=== PATIENT | female | born 1970 | race Caucasian/White ===

== ENCOUNTER 2022-05-18 09:40 | Emergency (ER) | payer OTHER, SELFPAY ==
[2022-05-18 09:41] VITALS: BP 174/97; PULSE 87; RESP 18; TEMP 36.6; O2SAT 99; BMI 34.7
--- NOTE | 2022-05-18 09:57 | CT_ITS ---
STUDY: CT ABDOMEN AND PELVIS WITHOUT CONTRAST REASON FOR EXAM: Female, 51 years old. Kidney Stone -- Left flank pain status post hysterectomy RADIATION DOSAGE (If Supplied By Facility): CTDIvol = ( 22.20 ) mGy, DLP = ( 1192.68 ) mGycm TECHNIQUE: Transaxial images were obtained from the dome of the diaphragm to the symphysis pubis without oral contrast, and without intravenous contrast. Sagittal and coronal images were reconstructed. Individualized dose optimization techniques were used for this CT. COMPARISON: None. FINDINGS: 1.7 cm x 0.7 cm partially calcified nodule in the posterior aspect of the right upper lobe. The visualized portions of the heart are within normal limits. Normal liver. Normal gallbladder and extrahepatic biliary system. Normal spleen. Normal pancreas. Normal bilateral adrenal glands. Normal right kidney. Normal left kidney. Normal visualized stomach. Normal small intestine. There are scattered colonic diverticula consistent with diverticulosis. The appendix is visualized and appears normal. There is scattered atherosclerotic calcification of the abdominal aorta, without a demonstrated aneurysm. Normal inferior vena cava. Normal retroperitoneum. Normal urinary bladder. There is absence of the uterus consistent with a prior hysterectomy. Normal abdominal wall. There are mild degenerative changes of the visualized lumbar spine. Loss of the normal lumbar lordosis. CT/Abdomen/Pelvis without Cont IMPRESSION: 1.7 cm x 0.7 cm partially calcified nodule in the posterior aspect of the right upper lobe. Scattered sigmoid diverticula. Electronically Signed: Chetan Arango MD at 10:41 EST ,
[2022-05-18] MEDS: Ondansetron 4 MG/2 ML Vial IV (10:10)
[2022-05-18] MEDS: morphine 8 MG/ML Syringe IV (10:10)
[2022-05-18 10:17] LABS: Absolute Lymphocyte Count 2.16 X10^3/uL (0.83-4.51); Absolute Neutrophil Count 7.3 X10^3/uL (2.0-7.7); Basophil# 0.02 X10^3/uL; Basophil% 0.2 % (0-1); Eosinophil# 0.15 X10^3/uL; Eosinophils% 1.4 % (0-5); Hemoglobin 14.8 g/dL (12.0-15.0); Lymphocyte # 2.16 X10^3/ul (0.83-4.51); Lymphocyte % 20.8 % (19-41); Mean Corp Hgb Conc 32.9 g/dL (32-36); Mean Corpuscular Hgb 28.9 pg (27.0-32.0); Mean Corpuscular Volume 87.9 fL (81-99); Mean Platelet Vol. 9.8 fl (6.2-12.0); Monocyte# 0.68 X10^3/uL; Monocyte% 6.6 % (0-10); NRBC Flagged by Analyzer 0 % (0-5); Neutrophil # 7.31 X10^3/uL (2.7-7.7); Neutrophil % 70.6 % (47-70); Platelet Count 381 K/mm3 (150-450); RBC Distribution Width CV 11.9 % (11.6-14.6); RBC Distribution Width SD 38.1 fl (35.1-43.9); Red Blood Count 5.12 M/mm3 (4.2-5.4); White Blood Count 10.4 K/mm3 (4.4-11.0)
[2022-05-18] MEDS: 0.9% Normal Saline 1,000 ML 250 ML IV (10:17)
--- NOTE | 2022-05-18 10:28 | EX.ED.DYSGE1 ---
HPI History of Present Illness Chief Complaint: Abd Pain Detail of Chief Complaint: Abrupt onset left lower quadrant and flank pain Informant: patient and spouse/S.O. Onset/Context/Timing Onset: Hours Context: Sudden Onset Timing: Continuous and Waxes and wanes Quality: Severe pain Location: Left flank and left lower quadrant Current Severity: Severe Maximum Severity: Severe Worsened by: Nothing Relieved by: Nothing Associated Symptoms Associated Symptoms: Nausea and urgency Narrative Narrative: Patient is a 51-year-old woman who is visiting from [place]. She has history of type 2 diabetes x10 years, hypertension, and hypercholesterolemia. She does not not believe she has kidney dysfunction. She does report chills without fever. She denies headache, visual, ocular auditory symptoms. She denies upper respiratory infectious symptoms. She denies vomiting diarrhea. She denies blood in her urine. She denies history of renal or ureterolithiasis. She denies history of diverticulosis diverticulitis. She states she is never had a colonoscopy. She endorses that she cannot find a position of comfort. There is no history of trauma. She is status post hysterectomy. Prior similar symptoms: No Recent Illness/Hospitalization: No PFSH PFS Medical History (Updated 05/18/22 @ 11:[address] Dylan Stanley MD) Afib Diabetes Migraine Post hysterectomy menopause Stroke Uterine adenomyoma Home Medications acarbose 50 mg tablet 50 mg PO DAILY 05/18/22 [History Last Taken Unknown] aspirin 81 mg chewable tablet 81 mg PO DAILY 05/18/22 [History Last Taken Unknown] lisinopril 10 mg tablet 10 mg PO DAILY #30 tabs 05/18/22 [Rx Last Taken Unknown] metformin 1,000 mg tablet 1,000 mg PO BID 05/18/22 [History Last Taken Unknown] simvastatin 40 mg tablet 40 mg PO DAILY 05/18/22 [History Last Taken Unknown] topiramate 100 mg tablet 100 mg PO BID 05/18/22 [History Last Taken Unknown] verapamil 120 mg tablet 120 mg PO BID 05/18/22 [History Last Taken Unknown] Allergy/AdvReac Type Severity Reaction Status Date / Time bee venom protein (honey bee) Allergy Mild Swelling Verified 05/18/22 09:58 [bee sting] Social History (Updated 05/18/22 @ 10:[address] Dylan Stanley MD) household members: spouse Smoking Status: Never smoker substance use type: does not use ROS ROS ED Constitutional Constitutional ED: Reports chills; Denies fever(s), subjective or sweats Eyes Eyes: Denies blurry vision, change in vision or diplopia ENT ENT ED: Denies ear pain, rhinorrhea or sore throat Cardiovascular Cardiovascular: Denies chest pain or palpitations Respiratory/Chest Respiratory/Chest: Denies cough, dyspnea or dyspnea on exertion Gastrointestinal Gastrointestinal: Reports abdominal pain and nausea; Denies constipation, diarrhea, melena or vomiting Genitourinary Genitourinary ED: Reports urinary frequency; Denies dysuria or hematuria Musculoskeletal Musculoskeletal: Reports other Details: Left flank pain ; Denies arthralgias, back pain, myalgias or neck pain Integumentary Denies Abrasions or rash Neurologic Neurologic: Denies paresthesias or weakness Endocrine Endocrinology: Denies polydipsia or polyuria Hematologic/Lymphatic Hematologic/Lymphatic: Reports none EXAM Physical Exam Const Vital Signs: 05/18/22 09:41 Temperature 97.8 F Temperature Source Temporal Pulse Rate 87 Respiratory Rate 18 Blood Pressure 174/97 H Blood Pressure Mean 122 Pulse Ox 99 Oxygen Delivery Method Room Air Positive well nourished, well developed and obese Constitutional Narrative: Patient appears in obvious discomfort. She is grimacing. General Appearance ED: well developed; Negative for pallor Nutritional Appearance: obese HEENT Reports moist mucous membranes HEENT Narrative: Head is atraumatic normocephalic. Ears normal. Nares patent. Uvula midline. No deviation with protrusion. Eyes PERRL General Eye ED: Negative for pale conjunctiva or scleral icterus Neck no lymphadenopathy, supple and no JVD Chest Wall inspection of chest normal and palpation of chest normal Resp normal respiratory effort and clear to auscultation bilaterally Cardio regular rate, regular rhythm, S1 normal heart sound, S2 normal heart sound and no murmurs GI normal to inspection, nondistended, normoactive bowel sounds, non-tender, non-distended and no masses; Negative for hepatosplenomegaly GI Narrative: There is no palpable pulsatile mass. There is no bruit. Back/Spine no CVA tenderness Thoracic Spine / Upper Back: Negative for thoracic spinal tenderness Lumbar Spine / Lower Back: Negative for lumbar spinal tenderness Neuro oriented x3, CN's II-XII intact bilaterally and no sensory deficits noted Sensorium / Orientation: alert Motor Exam: strength 5/5 throughout Psych mental status grossly normal Skin no rashes or lesions noted, no wounds and skin turgor normal General Skin Exam: elasticity normal; Negative for jaundice or pallor MDM MDM MDM Narrative Medical decision making narrative: Patient with abrupt onset of flank/abdominal pain. With history of unable to find position of comfort urgency suspect patient has obstructing ureteral stone. Will obtain urine to assess for infection. Basic metabolic panel was obtained since patient is diabetic assess glucose and CO2 anion gap as well as electrolytes. Also to determine patient has renal dysfunction in the event the morphine that was ordered does not alleviate her pain and will treat with Toradol. CBC was obtained to assess white count and rule out anemia. There are no records available for review. Did review patient's records on my chart. Patient was assessed at 1035. She states her pain is improved markedly. She still is having pain. Informed her that the basic metabolic panel had not returned and reluctant to treat with Toradol prior to reviewing her BUN and creatinine since she has had diabetes and hypertension for 10 years. Patient was made aware of CAT scan results and need for follow-up regarding the calcified nodule right upper lung field. Since she has a significant first-degree heart block and on verapamil will have patient discontinue verapamil and placed on lisinopril especially since she has an elevated creatinine with a GFR of 48. We will also discharge with pain medicine and antiemetic. Patient was not treated with antibiotics since there is no evidence of any inflammatory changes with regards to the colonic diverticular disease. Lab Data Attestation: I reviewed the patient's lab results. Lab results narrative: CBC is unremarkable. Patient metabolic panel reveals elevated creatinine of 1.25 with a GFR of 48. Glucose is elevated 244. CO2 and anion gap are normal. Labs: Laboratory Results - last 24 hr 05/18/22 05/18/22 09:50 09:50 WBC 10.4 RBC 5.12 Hgb 14.8 Hct 45.0 MCV 87.9 MCH 28.9 MCHC 32.9 RDW Std Deviation 38.1 RDW Coeff of Adelfo 11.9 Plt Count 381 MPV 9.8 Immature Gran % (Auto) 0.400 Neut % (Auto) 70.6 H Lymph % (Auto) 20.8 Woodward % (Auto) 6.6 Eos % (Auto) 1.4 Baso % (Auto) 0.2 Absolute Neuts (auto) 7.3 Absolute Lymphs (auto) 2.16 Nucleated RBC % 0 Sodium 137 Potassium 3.7 Chloride 105 Carbon Dioxide 25.0 Anion Gap 7 BUN 20 H Creatinine 1.25 H Estim Creat Clear Calc 50.97 Est GFR (MDRD) Af Amer 58 L Est GFR (MDRD) Non-Af 48 L BUN/Creatinine Ratio 16.0 Glucose 244 H Calcium 9.4 Radiography Diagnostic Testing: Clinical Impression(s) from Imaging Studies Abdomen/Pelvis CT 05/18/22 09:57 IMPRESSION: 1.7 cm x 0.7 cm partially calcified nodule in the posterior aspect of the right upper lobe. Scattered sigmoid diverticula. Electronically Signed: Chetan Arango MD at 10:41 EST , Patient has a nodule which will need further investigation. We will have disc made since patient is visiting from [place]. Rhythm Strip Rhythm Strip: Sinus Rhythm (There is a first-degree heart block The monitor. We will obtain twelve-lead EKG determine there is any other abnormalities.) Rate: 77 EKG Initial EKG: Attestation: I personally reviewed and interpreted this EKG as follows: Interpretation: Sinus Rhythm (Sinus rhythm with a first-degree heart block. Ventricular rate 79. MN interval 328 ms. QS duration 70 ms. QT duration 398 ms. Harriman is normal. There is decreased anterior force. There is no acute ischemic changes noted.) Prior: No Prior Treatment and Re-Evaluation Narrative: Patient was reassessed. Patient was informed per my interpretation of the CAT scan there is no evidence of renal ureterolithiasis. There is no evidence of cholelithiasis or thickening the gallbladder wall. The liver and spleen appear normal. Awaiting formal read by radiologist. There is no acute inflammatory changes noted either. Discharge Plan Triage Chief Complaint: Abd Pain ED Provider: JadenDylan Dx/Rx/DC Orders Clinical Impression: Left lower quadrant abdominal pain, Acute abdominal pain in left flank, Acute renal insufficiency, Hyperglycemia due to type 2 diabetes mellitus, Incidental pulmonary nodule, greater than or equal to 8mm, Colonic diverticular disease, Heart block AV first degree, Hypertension Instructions: ED Abdominal Pain Unkn Cause Fem, ED Pulmonary Nodule, Solitary, ED Renal Insufficiency Prescriptions: New lisinopril 10 mg tablet 10 mg PO DAILY Qty: 30 0RF No Action acarbose 50 mg Tablet 50 mg PO DAILY simvastatin 40 mg Tablet 40 mg PO DAILY verapamil 120 mg Tablet 120 mg PO BID metformin 1,000 mg Tablet 1,000 mg PO BID aspirin 81 mg Tablet,Chewable 81 mg PO DAILY topiramate 100 mg Tablet 100 mg PO BID Primary Care Provider: Care Physician,No Primary Referrals: Care Physician,No Primary [Primary Care Provider] - Doctor,Your [Non-Staff] - 1 Week Activity Restrictions/Additional Instructions: Discontinue verapamil. Disposition Disposition: Home, Self Care
[2022-05-18 10:30] LABS: Anion Gap 7 (5-15); BUN 20 mg/dL (7-18); Calcium,Total 9.4 mg/dL (8.5-10.1); Chloride 105 mmol/L (98-107); Creatinine, Serum 1.25 mg/dL (0.55-1.02); EST Glomerular Filtration Rate 48 mL/min (>60); Est Glom Filt Rate - Afr Amer 58 mL/min (>60); Estimated Creatinine Clearance 50.97 ml/min; Glucose 244 mg/dL (74-106); Potassium 3.7 mmol/L (3.5-5.1); Sodium Level 137 mmol/L (136-145)
--- NOTE | 2022-05-18 10:56 | EKG12_ITS ---
Test Reason : HEART BLOCK Blood Pressure : / mmHG Vent. Rate : 079 BPM Atrial Rate : 079 BPM P-R Int : 328 ms QRS Dur : 070 ms QT Int : 398 ms P-R-T Axes : 075 012 054 degrees QTc Int : 456 ms Sinus rhythm with 1st degree A-V block Septal infarct , age undetermined Abnormal ECG Confirmed by RIDGE COHN, СЕРГЕЙ ([id number]), online editor TINA COBB ([id number]) on 05/22/2022 12:25:09 PM Referred By: MARILUZ Confirmed By:СЕРГЕЙ SABILLON MD
[2022-05-18 11:15] LABS: Bacteria 0 SEEN /hpf (None Seen); Mucous, Urine 0 SEEN /hpf (<or=2+); Red Blood Cells-Urine 0 SEEN /hpf (0-5)
[2022-05-18 11:19] LABS: Color, Urine Yellow (Yellow); Glucose, Dipstick 50 mg/dl (Normal); Ketone-Dipstick Negative (Negative); Leukocyte Esterase-Dipstick 25 /ul (Negative); Nitrite-Dipstick Negative (Negative); Occult Blood-Urine Negative /ul (Negative); Protein-Dipstick Negative (Negative); Specific Gravity, Urine 1.005 (1.002-1.030); Urine Bilirubin Dipstick Negative (Negative); Urine Clarity Clear (Clear); Urine Urobilinogen Normal (Normal)
[2022-05-18 11:28] VITALS: BP 138/66; PULSE 59; RESP 16; O2SAT 98
[2022-05-18 11:28] LABS: Squamous Epithelial Cells - UA 0-5 SEEN /hpf (5-10); White Blood Cells 0-5 SEEN /hpf (0-5)
== END 2022-05-18 11:30 | disposition home or self-care (01) ==
PROVIDERS: Emergency Provider Emergency Medicine; Visit Provider Emergency Medicine
DX: R10.32 Left lower quadrant pain (principal); E11.65 Type 2 diabetes mellitus with hyperglycemia; R11.0 Nausea; K57.30 Diverticulosis of large intestine without perforation or abscess without bleeding; I44.0 Atrioventricular block, first degree; I10 Essential (primary) hypertension; E78.00 Pure hypercholesterolemia, unspecified; N28.9 Disorder of kidney and ureter, unspecified; R35.0 Frequency of micturition; E66.9 Obesity, unspecified; Z79.82 Long term (current) use of aspirin; Z79.84 Long term (current) use of oral hypoglycemic drugs; Z79.899 Other long term (current) drug therapy; R91.1 Solitary pulmonary nodule
CPT/HCPCS: 74176; 80048; 81001; 85025; 93005; 96374; 96375; 99283; J7030; A4216; J2405

== ENCOUNTER 2022-11-16 22:10 | Observation (INO) | payer OTHER, SELFPAY ==
[2022-11-16 22:10] VITALS: BP 163/75; PULSE 77; RESP 21; TEMP 36.8; O2SAT 99
[2022-11-16 22:13] VITALS: BP 163/75; PULSE 77; RESP 16; O2SAT 99
--- NOTE | 2022-11-16 22:13 | CT_ITS ---
We are attempting to reach an attending provider to discuss findings. An addendum with communication details will be sent when the communication is complete. EXAM: CT HEAD WITHOUT INTRAVENOUS CONTRAST CLINICAL INDICATION: Neuro deficit, acute, stroke suspected TECHNIQUE: Multiple axial images were obtained of the head without intravenous contrast. CTDIvol = ( 45 ) mGy, DLP = ( 846 ) mGycm This CT exam was performed using one or more of the following dose reduction techniques: automated exposure control, adjustment of the mA and/or kV according to patient size, and/or use of iterative reconstruction technique. COMPARISON: No relevant prior studies available. 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 Old infarct involving the left cerebellum. No intra- or extra-axial hemorrhage. No intracranial mass or mass effect. Posterior fossa structures are unremarkable. Ventricles are appropriate for age. No hydrocephalus. Basal cisterns are patent. BONES/JOINTS: Unremarkable. No discrete lytic or blastic abnormalities. SINUSES: Unremarkable as visualized. Clear. MASTOID AIR CELLS: Unremarkable. Clear. ORBITS: Visualized globes, extraocular muscles, optic nerves and retrobulbar fat appear unremarkable. CT/STROKE Brain/Head without Cont IMPRESSION: No acute findings in the head/brain. 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 Stroke ASPECTS score 10. AIDOC program was used to assist in the detection of abnormal findings. Electronically Signed: Malik Rosen MD at 22:32 EDT ,
--- NOTE | 2022-11-16 22:13 | EKG12_ITS ---
Test Reason : STROKE Blood Pressure : / mmHG Vent. Rate : 077 BPM Atrial Rate : 077 BPM P-R Int : 370 ms QRS Dur : 072 ms QT Int : 392 ms P-R-T Axes : 052 000 027 degrees QTc Int : 443 ms Sinus rhythm with 1st degree A-V block Possible Inferior infarct , age undetermined Anteroseptal infarct , age undetermined Abnormal ECG Confirmed by RIDGE COHN, СЕРГЕЙ ([id number]), assistant film editor TINA COBB ([id number]) on 11/17/2022 1:00:41 PM Referred By: Confirmed By:СЕРГЕЙ SABILLON MD
--- NOTE | 2022-11-16 22:14 | CT_ITS ---
We are attempting to reach an attending provider to discuss findings. An addendum with communication details will be sent when the communication is complete. EXAM: CT ANGIOGRAPHY HEAD T NECK WITH INTRAVENOUS CONTRAST CLINICAL INDICATION: Neuro deficit, acute, stroke suspected TECHNIQUE: Routine head and neck carotid CT angiography protocol was performed with intravenous contrast. NASCET criteria using the distal ICAs for comparison were used for evaluation of stenoses. CTDIvol = ( 19.95 ) mGy, DLP = ( 792.46 ) mGycm This CT exam was performed using one or more of the following dose reduction techniques: automated exposure control, adjustment of the mA and/or kV according to patient size, and/or use of iterative reconstruction technique. MIP reconstructed images were created and reviewed. CONTRAST: IV 100mL [id number] COMPARISON: No relevant prior studies available. FINDINGS: Intracranially there is no significant stenosis, thrombosis, aneurysm or dissection. Old infarcts are seen involving the left cerebellar hemisphere and left occipital lobe. VASCULATURE: RIGHT COMMON CAROTID ARTERY: Unremarkable. No occlusion or significant stenosis. No dissection. RIGHT INTERNAL CAROTID ARTERY: Unremarkable. Extracranial segment is patent with no occlusion or significant stenosis. No dissection. RIGHT EXTERNAL CAROTID ARTERY: Unremarkable. No occlusion. RIGHT VERTEBRAL ARTERY: Unremarkable. No occlusion or significant stenosis. No dissection. LEFT COMMON CAROTID ARTERY: Unremarkable. No occlusion or significant stenosis. No dissection. LEFT INTERNAL CAROTID ARTERY: Unremarkable. Extracranial segment is patent with no occlusion or significant stenosis. No dissection. LEFT EXTERNAL CAROTID ARTERY: Unremarkable. No occlusion. LEFT VERTEBRAL ARTERY: Unremarkable. No occlusion or significant stenosis. No dissection. BRACHIOCEPHALIC AND SUBCLAVIAN ARTERIES: Unremarkable as visualized. No occlusion or significant stenosis. NECK: BONES/JOINTS: Unremarkable. SOFT TISSUES: Unremarkable. LUNG APICES: Clear. CAROTID STENOSIS REFERENCE USING NASCET CRITERIA: % ICA stenosis = (1 - narrowest ICA diameter/diameter of distal cervical ICA) x 100. Mild - <50% stenosis. Moderate - 50-69% stenosis. Severe - 70-94% stenosis. Near occlusion - 95-99% stenosis. Occluded - 100% stenosis. CT/STROKE CTA Head AND Neck W/Con IMPRESSION: Negative CTA head and neck. AIDOC program was used to assist in the detection of abnormal findings. Electronically Signed: Malik Rosen MD at 22:47 EDT Reading Location ID and State: [facility] / [place] Tel , Service support ,
--- NOTE | 2022-11-16 22:15 | ED.VIS.STROK ---
HPI History of Present Illness Chief Complaint: Stroke Alert Informant: patient, spouse/S.O. and EMS Onset/Context/Timing Onset: Today Narrative Narrative: Patient presents via EMS as a stroke alert. EMS reports they were called at 9:26 PM just after the patient developed symptoms of right-sided weakness and right facial droop. They report in route to the hospital the facial droop has essentially resolved. She continues to have right-sided weakness. She does have a history of atrial fibrillation, not on anticoagulation. She has had migraines and TIAs as well. With prior TIA she has had right-sided weakness as well as vision loss. [facility] Medical History Afib Diabetes Migraine Post hysterectomy menopause Stroke Uterine adenomyoma Home Medications hydrocodone-acetaminophen 5-325mg 5mg-325mg 1 tab PO Q6H PRN PRN Pain 3 days #10 TABLETS 05/18/22 [Rx Last Taken Unknown] lisinopril 10 mg tablet 10 mg PO DAILY #30 tabs 05/18/22 [Rx Last Taken Unknown] metformin 1,000 mg tablet 500 mg PO BID 05/18/22 [History Last Taken Unknown] ondansetron 4 mg disintegrating tablet 4 mg PO Q8H PRN PRN Nausea #10 tabs 05/18/22 [Rx Last Taken Unknown] simvastatin 40 mg tablet 40 mg PO DAILY 05/18/22 [History Last Taken Unknown] topiramate 100 mg tablet 100 mg PO BID 05/18/22 [History Last Taken Unknown] verapamil 120 mg tablet 120 mg PO BID 05/18/22 [History Last Taken Unknown] aspirin 325 mg tablet,delayed release (Aspir-Oksana) 325 mg PO DAILY 11/16/22 [History Last Taken Unknown] Allergy/AdvReac Type Severity Reaction Status Date / Time bee venom protein (honey bee) Allergy Mild Swelling Verified 11/16/22 23:00 [bee sting] Social History household members: spouse Smoking Status: Never smoker substance use type: does not use ROS ROS ED Constitutional Constitutional ED: Denies chills or fever(s) Eyes Eyes: Denies change in vision ENT ENT ED: Denies rhinorrhea or sore throat Cardiovascular Cardiovascular: Denies chest pain or palpitations Respiratory/Chest Respiratory/Chest: Denies cough or dyspnea Gastrointestinal Gastrointestinal: Denies abdominal pain, nausea or vomiting Genitourinary Genitourinary ED: Denies difficulty urinating or dysuria Musculoskeletal Musculoskeletal: Denies back pain or extremity pain Integumentary Denies Abrasions or rash Neurologic Neurologic: Reports headache(s), paresthesias and weakness Psychiatric Psychiatric: Denies anxiety or depression Allergic/Immunologic Allergic/Immunologic ED: Denies lip swelling or urticaria EXAM Physical Exam Const Vital Signs: 11/16/22 22:24 11/16/22 22:10 11/16/22 22:51 Temperature 98.3 F 98.3 F Temperature Source Temporal Temporal Pulse Rate 76 77 Respiratory Rate 23 H 21 H Blood Pressure 163/75 H 163/75 H Blood Pressure Mean 104 104 Pulse Ox 99 99 Oxygen Delivery Method Room Air Room Air Room Air 11/16/22 22:13 11/16/22 22:43 11/16/22 23:21 Temperature Temperature Source Pulse Rate 77 81 95 Respiratory Rate 16 22 H 18 Blood Pressure 163/75 H 155/75 H 136/79 H Blood Pressure Mean 104 101 98 Pulse Ox 99 97 98 Oxygen Delivery Method Room Air Room Air Room Air Positive well nourished and well developed General Appearance ED: well developed HEENT Reports moist mucous membranes Eyes PERRL and EOMs intact bilaterally Neck no lymphadenopathy Chest Wall inspection of chest normal and palpation of chest normal Resp normal respiratory effort and clear to auscultation bilaterally Cardio Rate: regular rate Rhythm: regular rhythm GI soft to palpation and non-tender Auscultation: hypoactive bowel sounds Neuro oriented x3 NIHSS NIHSS Initial: 1a Level of Consciousness: 0 1b LOC Questions (Score 2 if aphasic/stupor): 0 1c LOC Commands (Only score 1st attempt): 0 2 Best Gaze (If aphasic, use reflexive mvmts.): 0 3 Visual: 1 4 Facial Palsy: 0 5 Motor Arm Right (UN = amputation/fusion): 2 5 Motor Arm Left: 0 6 Motor Leg Right: 3 6 Motor Leg Left: 0 7 Limb ataxia (Only + if out of proportion): 0 8 Sensory (Aphasia/stupor=0 or 1, coma=2): 1 9 Best Language: 0 10 Dysarthria (mute, coma=2, intubated=UN): 0 11 Extinction and Inattention (only scored if +): 0 Total Score: 7 MDM MDM MDM Narrative Medical decision making narrative: Patient was made a stroke alert on arrival. She was met at the ambulance bay and after quick exam was sent immediately to CT. The patient returned to the room I repeated her exam. Her NIH score is 7. Labwork obtained to evaluate for leukocytosis, anemia, and electrolyte derangement. EKG obtained to evaluate for cardiac arrhythmia/ischemia. Chest x-ray obtained to evaluate for acute lung pathology, cardiac size, or mediastinal abnormality. I was in the room when [facility] neurologist evaluated the patient. She requested the patient be treated for migraine and was not sure that this represented a new stroke, but may be an exacerbation of old stroke symptoms. Patient is given Toradol, Compazine, Benadryl, and IV fluids. History & Record Review Discussion w/independent historian: EMS personnel, Patient and Family Additional record(s) reviewed:: Prior labs Lab Data Attestation: I reviewed the patient's lab results. Labs: Laboratory Results - last 24 hr 11/16/22 22:30 WBC 8.9 RBC 4.12 L Hgb 12.1 Hct 37.4 MCV 90.8 MCH 29.4 MCHC 32.4 RDW Std Deviation 43.0 RDW Coeff of Adelfo 13.1 Plt Count 240 MPV 9.8 Immature Gran % (Auto) 0.200 Neut % (Auto) 53.6 Lymph % (Auto) 31.2 [place] % (Auto) 5.8 Eos % (Auto) 9.0 H Baso % (Auto) 0.2 Absolute Neuts (auto) 4.8 Absolute Lymphs (auto) 2.78 Nucleated RBC % 0 PT 13.0 INR 1.0 APTT 27.5 Sodium 140 Potassium 3.7 Chloride 109 H Carbon Dioxide 26.0 Anion Gap 5 BUN 25 H Creatinine 1.43 H Estim Creat Clear Calc 44.06 Est GFR (MDRD) Af Amer 50 L Est GFR (MDRD) Non-Af 41 L BUN/Creatinine Ratio 17.5 Glucose 117 H Calcium 8.4 L Troponin I High Sens 5 Radiography Chest X-Ray - ED: 1 View, Read by ED Physician, Normal, Heart, Lungs and Mediastinum Diagnostic Testing: Clinical Impression(s) from Imaging Studies Brain CT 11/16/22 22:13 IMPRESSION: No acute findings in the head/brain. 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 Stroke ASPECTS score 10. AIDOC program was used to assist in the detection of abnormal findings. Electronically Signed: Malik Rosen MD at 22:32 EDT , ADDENDUM: 11/16/22 2239 IMPRESSION: No acute findings in the head/brain. 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 Stroke ASPECTS score 10. AIDOC program was used to assist in the detection of abnormal findings. N.B. : The above Results were Read Back by Malik Rosen MD to Megan Rogers MD, and understanding confirmed on 11/16/2022 22:33:03 (ET). Electronically Signed: Malik Rosen MD at 22:32 EDT , ADDENDUM: 11/16/22 2241 IMPRESSION: undefined Head/Neck CTA 11/16/22 22:14 IMPRESSION: Negative CTA head and neck. AIDOC program was used to assist in the detection of abnormal findings. Electronically Signed: Malik Rosen MD at 22:47 EDT , ADDENDUM: 11/16/22 2254 IMPRESSION: Negative CTA head and neck. AIDOC program was used to assist in the detection of abnormal findings. N.B. : The above Results were Read Back by Malik Rosen MD to Megan Rogers MD, and understanding confirmed on 11/16/2022 22:47:56 (ET). Electronically Signed: Malik Rosen MD at 22:47 EDT , ADDENDUM: 11/16/22 7757 IMPRESSION: undefined EKG Initial EKG: Attestation: I personally reviewed and interpreted this EKG as follows: Interpretation: Sinus Rhythm (Sinus at 77 with no acute ischemia.) Treatment and Re-Evaluation Narrative: On repeat evaluation patient resting comfortably. She continues to have significant right-sided paresthesias with weakness. CBC is unremarkable. Chemistry studies reveal a BUN of 25 and a creatinine 1.43. Troponin is normal at 5. Glucose is 117. Portable chest x-ray per my interpretation reveals no acute findings. EKG is sinus rhythm with no acute ischemia. I will discuss case with hospitalist for observation and further treatment. Discharge Plan Triage Chief Complaint: Stroke Alert ED Provider: Megan Rogers Dx/Rx/DC Orders Clinical Impression: Paresthesias, Migraine, Acute right-sided muscle weakness Prescriptions: No Action simvastatin 40 mg Tablet 40 mg PO DAILY verapamil 120 mg Tablet 120 mg PO BID metformin 1,000 mg Tablet 500 mg PO BID topiramate 100 mg Tablet 100 mg PO BID lisinopril 10 mg tablet 10 mg PO DAILY Qty: 30 0RF hydrocodone-acetaminophen [hydrocodone-acetaminophen] 5-325 mg tablet 1 tab PO Q6H PRN PRN (Reason: Pain) 3 Days Qty: 10 0RF ondansetron [ondansetron] 4 mg tablet,disintegrating 4 mg PO Q8H PRN PRN (Reason: Nausea) Qty: 10 0RF aspirin [Aspir-Oksana] 325 mg tablet,delayed release (DR/EC) 325 mg PO DAILY Primary Care Provider: Care Physician,No Primary Referrals: Care Physician,No Primary [Primary Care Provider] - Disposition [facility]
[2022-11-16 22:24] VITALS: BP 163/75; PULSE 76; RESP 23; TEMP 36.8; O2SAT 99; BMI 35.2
[2022-11-16 22:34] LABS: Absolute Lymphocyte Count 2.78 X10^3/uL (0.83-4.51); Absolute Neutrophil Count 4.8 X10^3/uL (2.0-7.7); Basophil# 0.02 X10^3/uL; Basophil% 0.2 % (0-1); Hematocrit 37.4 % (37-47); Hemoglobin 12.1 g/dL (12.0-15.0); Lymphocyte # 2.78 X10^3/ul (0.83-4.51); Lymphocyte % 31.2 % (19-41); Mean Corp Hgb Conc 32.4 g/dL (32-36); Mean Corpuscular Hgb 29.4 pg (27.0-32.0); Mean Corpuscular Volume 90.8 fL (81-99); Mean Platelet Vol. 9.8 fl (6.2-12.0); Monocyte# 0.52 X10^3/uL; Monocyte% 5.8 % (0-10); NRBC Flagged by Analyzer 0 % (0-5); Neutrophil # 4.76 X10^3/uL (2.7-7.7); Neutrophil % 53.6 % (47-70); Platelet Count 240 K/mm3 (150-450); RBC Distribution Width CV 13.1 % (11.6-14.6); Red Blood Count 4.12 M/mm3 (4.2-5.4); White Blood Count 8.9 K/mm3 (4.4-11.0)
[2022-11-16 22:43] VITALS: BP 155/75; PULSE 81; RESP 22; O2SAT 97
[2022-11-16 22:48] LABS: Partial Thromboplast Time 27.5 Seconds (24.1-36.2)
[2022-11-16] MEDS: DiphenhydrAMINE 50 MG/ML Syringe 25 MG IV (22:49)
[2022-11-16] MEDS: proCHLORPERazine 10 MG/2 ML Vial IV (22:49)
[2022-11-16] MEDS: 0.9% Normal Saline 1,000 ML 999 ML IV (22:50)
[2022-11-16] MEDS: Ketorolac 30 MG/ML Syringe IV (22:50)
[2022-11-16 22:53] LABS: Anion Gap 5 (5-15); BUN 25 mg/dL (7-18); BUN/Creat Ratio 17.5 RATIO (10-20); Calcium,Total 8.4 mg/dL (8.5-10.1); Chloride 109 mmol/L (98-107); Creatinine, Serum 1.43 mg/dL (0.55-1.02); EST Glomerular Filtration Rate 41 mL/min (>60); Est Glom Filt Rate - Afr Amer 50 mL/min (>60); Estimated Creatinine Clearance 44.06 ml/min; Glucose 117 mg/dL (74-106); Potassium 3.7 mmol/L (3.5-5.1); Sodium Level 140 mmol/L (136-145); Troponin-I HS 5 pg/mL (3.0-54.0)
[2022-11-16 22:58] VITALS: BMI 35.2
[2022-11-16 23:21] VITALS: BP 136/79; PULSE 95; RESP 18; O2SAT 98
--- NOTE | 2022-11-16 23:21 | RAD_ITS ---
EXAM: XR CHEST, 1 VIEW CLINICAL INDICATION: Neuro deficit, acute, stroke suspected TECHNIQUE: Frontal view of the chest. COMPARISON: No relevant prior studies available. FINDINGS: LUNGS AND PLEURAL SPACES: Unremarkable. No consolidation or edema. No pneumothorax. No effusion. HEART: Unremarkable. Cardiac silhouette not enlarged. MEDIASTINUM: Central airways and mediastinal contour are unremarkable. BONES/JOINTS: Degenerative changes of the acromioclavicular joints. SOFT TISSUES: Unremarkable. RAD/Chest 1 View IMPRESSION: No radiographic evidence of acute cardiopulmonary disease. Electronically Signed: Malik Rosen MD at 0:27 EDT ,
[2022-11-16 23:50] VITALS: BP 108/77; PULSE 85; RESP 17; O2SAT 95
[2022-11-17] VITALS (7 sets, daily range): BP systolic 107–137; BP diastolic 58–81; PULSE 65–88; RESP 16–22; TEMP 36.2–36.9; O2SAT 95–100; BMI 34.0
--- NOTE | 2022-11-17 00:22 | ED.RN ---
Addendum entered by Alma Jain 11/17/22 00:42: Dr. Corado aware of pt LOC. Original Note: Pt alertness decreased due to medications. Pt alert and could follow commands before med administration. Unable to remain awake for dysphagia screen.
[2022-11-17 00:27] LABS: Magnesium 1.8 mg/dL (1.6-2.6)
--- NOTE | 2022-11-17 00:42 | HP.PCM.HOS_ITS ---
HPI - General General Date of Admission: 11/17/22 Date of Service: 11/17/22 Chief Complaint: R sided weakness, paresthesias, migraine. 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, PAF not on chronic anticoagulation, Chronic migraines who presents to the [facility] ED on 11/16/22 with history of onset at approximately 9:26 PM right-sided weakness and right facial droop with EMS immediate call requested with stroke alert initiated with on route to hospital resolution of at least the facial droop but continued right-sided weakness with associated significant paresthesias however admitting also to a current migraine at the same time with prior history of having issues with right-sided weakness as well as vision loss transiently with reported per patient acute migraines. In the ED initial NIH stroke scale per ED physician with score of 7 for visual 1, right upper extremity 2, right lower extremity 3, sensory 1. Repeat NIH stroke scale assessment per stroke alert neurology [facility] with score 241 drift and 1 mild to moderate sensory loss only. Work-up in the ED included T98.3, heart 76, BP initially 163/75 with most recent repeat 136/79, respiratory rate 16, 99% on room air, CBC with WC 8.9, human 12.1, platelet 240 without marked shift, unremarkable coags, BMP with chloride 109, BUN/creatinine 25/1.43, glucose 117, troponin 5, CT of the brain with no acute intracranial findings however there is evidence of an old infarct involving the left occipital lobe with encephalomalacia and also the left cerebellum, CTA head and neck with no acute evidence of any stenoses or large vessel occlusions. Per stroke alert [facility] neurology recommendation recommendation for migraine cocktail, continue aspirin, SBP less than 180, obtain MRI head without contrast, continue routine stroke evaluation with therapies and lab evaluations, EKG with SR without acute evidence of ischemia. Following migraine cocktail she did have improvement in her paresthesias and was starting to be able to move her extremities but the cocktail has made her very fatigued and she since has been sleeping soundly. [facility] Medical History (Updated 11/17/22 @ 00:[address] Tammy Corado MD) Chronic migraine with aura Diabetes mellitus, type 2 HLD (hyperlipidemia) Obesity SEAN on CPAP PAF (paroxysmal atrial fibrillation) Post hysterectomy menopause Stroke Uterine adenomyoma Home Medications hydrocodone-acetaminophen 5-325mg 5mg-325mg 1 tab PO Q6H PRN PRN Pain 3 days #10 TABLETS 05/18/22 [Rx Last Taken Unknown] lisinopril 10 mg tablet 10 mg PO DAILY #30 tabs 05/18/22 [Rx Last Taken Unknown] metformin 1,000 mg tablet 500 mg PO BID 05/18/22 [History Last Taken Unknown] ondansetron 4 mg disintegrating tablet 4 mg PO Q8H PRN PRN Nausea #10 tabs 05/18/22 [Rx Last Taken Unknown] simvastatin 40 mg tablet 40 mg PO DAILY 05/18/22 [History Last Taken Unknown] topiramate 100 mg tablet 100 mg PO BID 05/18/22 [History Last Taken Unknown] verapamil 120 mg tablet 120 mg PO BID 05/18/22 [History Last Taken Unknown] aspirin 325 mg tablet,delayed release (Aspir-Oksana) 325 mg PO DAILY 11/16/22 [History Last Taken Unknown] insulin glargine 100 unit/mL subcutaneous solution (Lantus U-100 Insulin) 20 unit subcut DAILY 11/17/22 [History Last Taken Unknown] Allergy/AdvReac Type Severity Reaction Status Date / Time bee venom protein (honey bee) Allergy Mild Swelling Verified 11/16/22 23:00 [bee sting] Family History (Updated 11/17/22 @ 00:[address] Tammy Corado MD) Mother Parkinson's disease Migraines Father Heart disease Hypertension CAD (coronary artery disease) Myocardial infarction Surgical History (Updated 11/17/22 @ 00:[address] Tammy Corado MD) History of History of hysterectomy Social History (Updated 11/17/22 @ 00:[address] Tammy Corado MD) household members: spouse Smoking Status: Never smoker alcohol intake: never substance use type: does not use ROS ROS Narrative ROS GIVEN PER FAMILY PATIENT SEDATE SECONDARY TO MEDICATIONS WITH MIGRAINE COCKTAIL: Admission Review of Systems: CONSTITUTIONAL: No weight loss, fever, chills, + weakness or fatigue. HEENT: + Headache/Migraine with aura/photophobia. Eyes: No visual loss, blurred vision, double vision or yellow sclerae. Ears, Nose, Throat: No hearing loss, sneezing, congestion, runny nose or sore throat. SKIN: No rash or itching, lesions, wounds. CARDIOVASCULAR: No chest pain, chest pressure or chest discomfort, palpitations, edema, orthopnea, syncopal events. RESPIRATORY: No shortness of breath, cough or sputum, wheezing, hemoptysis. GASTROINTESTINAL: No anorexia, nausea, vomiting or diarrhea, abdominal pain, melena, BRBPR. GENITOURINARY: No dysuria, frequency, urgency or retention. NEUROLOGICAL: + Headache/Migraine with aura/photophobia, weakness, R>L, paresthesias BL with complete absence of sensation R side, No dizziness, syncope, paralysis, ataxia, change in bowel or bladder control, seizure. MUSCULOSKELETAL: + muscle, back pain, joint pain or stiffness. HEMATOLOGIC: No anemia, bleeding or bruising. LYMPHATICS: No enlarged nodes. No history of splenectomy. PSYCHIATRIC: No history of depression or anxiety. ENDOCRINOLOGIC: No reports of sweating, cold or heat intolerance. No polyuria or polydipsia. ALLERGIES: No history of asthma, hives, eczema or rhinitis. Vital Signs Vital Signs Vital Signs: 11/16/22 22:24 11/16/22 22:10 11/16/22 22:51 Temperature 98.3 F 98.3 F Temperature Source Temporal Temporal Pulse Rate 76 77 Respiratory Rate 23 H 21 H Blood Pressure 163/75 H 163/75 H Blood Pressure Mean 104 104 Pulse Ox 99 99 Oxygen Delivery Method Room Air Room Air Room Air 11/16/22 22:13 11/16/22 22:43 11/16/22 23:21 Temperature Temperature Source Pulse Rate 77 81 95 Respiratory Rate 16 22 H 18 Blood Pressure 163/75 H 155/75 H 136/79 H Blood Pressure Mean 104 101 98 Pulse Ox 99 97 98 Oxygen Delivery Method Room Air Room Air Room Air 11/16/22 23:50 Temperature Temperature Source Pulse Rate 85 Respiratory Rate 17 Blood Pressure 108/77 Blood Pressure Mean 87 Pulse Ox 95 Oxygen Delivery Method Room Air Weight Weight: 218 lb 0.595 oz Body Mass Index (BMI) 35.2 Physical Exam Narrative Physical Examination: General: Awakens to stimuli but notable lethargic with recent migraine cocktail, not markedly alert secondary to medications, too fatigued to answer orientation questions but had been witnessed appropriate prior, laying in the ED bed, snoring. Skin: Normal color, normal turgor, no icterus, no cyanosis. HEENT: AT/NC, EOM unable to be assessed well given falls back asleep immediately upon attempts to awaken, PERRLA, mildly dry MM, no carotid bruits or JVD noted, no evidence of any facial droop. Lungs: CTA bilaterally, moderate effort, mild decrease BL bases, no rales, ronchi or wheezing. Heart: Regular rate and rhythm; no gallop, rub audible. Abdomen: Soft, obese, no grimace with palpation, ND, normal BS, no HSM. Extremities: No cyanosis, clubbing, or edema. Neurological: Awakens to stimuli but notable lethargic with recent migraine cocktail, not markedly alert secondary to medications, too fatigued to answer orientation questions but had been witnessed appropriate prior, laying in the ED bed, snoring, unable to assess, cranial nerves difficult to currently assess but prior to medications were grossly normal, currently moving all 4 extremities spontaneously in her sleep, unable to assess sensation, FTN/HTS, negative babinski. Psychiatric: Affect appears fatigued, sedate, snoring, no acute evidence of depressive or anxiety feelings. Results Lab / Micro Data 11/16/22 22:30 11/16/22 22:30 Labs: Laboratory Results - last 24 hr 11/16/22 22:30: WBC 8.9, RBC 4.12 L, Hgb 12.1, Hct 37.4, MCV 90.8, MCH 29.4, MCHC 32.4, RDW Std Deviation 43.0, RDW Coeff of Adelfo 13.1, Plt Count 240, MPV 9.8, Immature Gran % (Auto) 0.200, Neut % (Auto) 53.6, Lymph % (Auto) 31.2, [place] % (Auto) 5.8, Eos % (Auto) 9.0 H, Baso % (Auto) 0.2, Absolute Neuts (auto) 4.8, Absolute Lymphs (auto) 2.78, Nucleated RBC % 0, PT 13.0, INR 1.0, APTT 27.5, Sodium 140, Potassium 3.7, Chloride 109 H, Carbon Dioxide 26.0, Anion Gap 5, BUN 25 H, Creatinine 1.43 H, Estim Creat Clear Calc 44.06, Est GFR (MDRD) Af Amer 50 L, Est GFR (MDRD) Non-Af 41 L, BUN/Creatinine Ratio 17.5, Glucose 117 H, Calcium 8.4 L, Troponin I High Sens [address] 11/16/22 22:13 IMPRESSION: No acute findings in the head/brain. 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 Stroke ASPECTS score 10. AIDOC program was used to assist in the detection of abnormal findings. Electronically Signed: Malik Rosen MD at 22:32 EDT , ADDENDUM: 11/16/22 2239 IMPRESSION: No acute findings in the head/brain. 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 Stroke ASPECTS score 10. AIDOC program was used to assist in the detection of abnormal findings. N.B. : The above Results were Read Back by Malik Rosen MD to Megan Rogers MD, and understanding confirmed on 11/16/2022 22:33:03 (ET). Electronically Signed: Malik Rosen MD at 22:32 EDT , ADDENDUM: 11/16/22 2241 IMPRESSION: undefined Head/Neck CTA 11/16/22 22:14 IMPRESSION: Negative CTA head and neck. AIDOC program was used to assist in the detection of abnormal findings. Electronically Signed: Malik Rosen MD at 22:47 EDT , ADDENDUM: 11/16/22 2254 IMPRESSION: Negative CTA head and neck. AIDOC program was used to assist in the detection of abnormal findings. N.B. : The above Results were Read Back by Malik Rosen MD to Megan Rogers MD, and understanding confirmed on 11/16/2022 22:47:56 (ET). 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, PAF not on chronic anticoagulation, Chronic migraines who presents to the [facility] ED on 11/16/22 with history of onset at approximately 9:26 PM right- sided weakness and right facial droop with EMS immediate call requested with stroke alert initiated with on route to hospital resolution of at least the facial droop but continued right-sided weakness with associated significant paresthesias however admitting also to a current migraine at the same time with prior history of having issues with right-sided weakness as well as vision loss transiently with reported per patient acute migraines. #1. Right sided facial droop and right-sided hemiparesis as well as paresthesias, improving, concerning for TIA/CVA versus complex migraine with evidence of prior old infarct in the left occipital lobe with associated encephalomalacia as well as in the left cerebellar region as well as significant migraine history: Will admit to PCU, will obtain MRI Brain, will obtain ECHO, PT/OT/Speech/Nutrition evaluation per protocol. Will allow permissive HTN with goal less than 180 at this point per neurology, maintain on aspirin per current neurology recommendation however given underlying paroxysmal A-fib would certainly have low threshold to transition to baby aspirin and add anticoagulant therapy, continue home statin w/ AM FLP, fall precautions. Mag, TSH, FLP, HgbA1c requested. Maintain on fall and aspiration precautions. Once work-up obtained low threshold to obtain Neurology consultation especially for reconsideration of anticoagulant therapy. We will continue patient home topiramate regimen of note. Patient also in the ED administered migraine cocktail with Benadryl 25 mg IV x1, Toradol 30 mg IV x1 and prochlorperazine 10 mg IV x1. If MRI is negative and there is no evidence of any acute stroke certainly would benefit from more aggressive follow-up with neurology to control her chronic migraines especially given they would be complex. Patient reported an extensive evaluation in [place] with her first stroke. can recall a possible US but unclear if with bubble thus ordered also as noted. Ideally, will request records but unclear timeline to obtain. #2. PAF: Given acute presentation #1 we will temporarily hold patient home verapamil regimen, per current neurology recommendation we will continue her aspirin therapy but again given underlying paroxysmal A-fib history if MRI shows any recurrent stroke would certainly at that point be best for patient to initiate chronic anticoagulant therapy. She has never followed up for her PAF with cardiology. #3. Chronic Kidney Disease Stage III, unclear subtype: Admission BUN/Cr 25/1.43, baseline renal function noted to be 1 2.5 prior but only one value thus unclear exact baseline, will repeat BMP in AM. #4. Hypertension: We will maintain permissive hypertension with goal less than 180 per neurology recommendation given acute presentation with as needed agents per stroke protocol. #5. Hyperlipidemia: Continue home statin regimen. AM FLP. #6. Diabetes mellitus type II: Hold oral home regimen, ADA diet, accu checks w/ ISS, HgbA1c ordered as noted, nutrition consulted per stroke protocol. #7. Obesity: Weight loss and lifestyle changes encouraged. #8. SEAN: CPAP q HS. #9. DVT prophylaxis: Lovenox. #10. CODE status: Full Code. Admission Evaluation Time spent evaluating chart, patient history, patient evaluation, care planning and discussion with specialists: 75 minutes. Charges/Coding Visit Charges Inpatient E&M: 43769 Init Hosp L3
--- NOTE | 2022-11-17 01:12 | MRI_ITS ---
EXAM: MR HEAD WITHOUT INTRAVENOUS CONTRAST CLINICAL INDICATION: CVA TECHNIQUE: Multiplanar and multisequence MR images of the brain were obtained without intravenous contrast. COMPARISON: CT head without contrast and CTA head with contrast 11/16/2022. FINDINGS: BRAIN AND EXTRA-AXIAL SPACES: Linear diffusion restriction in the left thalamus near the left posterior internal capsule is also visible on the T2 FLAIR sequence. This is subacute lacunar ischemic infarct. Small subcortical white matter T2 FLAIR hyperintensity foci in both cerebral hemispheres are chronic white matter ischemic changes. Old ischemic infarct with focal atrophy and encephalomalacia in the left kidney is and left lingual gyrus. Smaller old ischemic infarct with focal atrophy and encephalomalacia in the medial surface of the inferior semilunar lobule of the left cerebellar hemisphere. Old lacunar cystic infarct in the left periventricular white matter. No intra- or extra-axial hemorrhage. No intracranial mass or mass effect. No hydrocephalus. Basal cisterns are patent. SELLA: Unremarkable. Normal sella turcica, pituitary gland, infundibular stalk, optic chiasm and hypothalamus. AUDITORY SYSTEM: Unremarkable. The internal auditory canals are patent. BONES/JOINTS: Unremarkable. No discrete lytic or blastic abnormalities. SINUSES: Unremarkable as visualized. Clear. MASTOID AIR CELLS: Unremarkable as visualized. Clear. ORBITS: Unremarkable as visualized. Both globes, extraocular muscles, optic nerves and retrobulbar fat appear unremarkable. VASCULATURE: Unremarkable as visualized. Normal flow voids in the major intracranial circulation. MRI/Brain without Contrast IMPRESSION: 1. Subacute linear lacunar ischemic infarct in the left thalamus adjacent the left posterior internal capsule. 2. Prominent old ischemic infarct with cystic atrophy and surrounding encephalomalacia in the left medial occipital lobe corresponding to the cuneus and posterior aspect of the lingual gyrus. 3. Small old ischemic infarct with cystic atrophy and encephalomalacia in the medial surface of the inferior semilunar lobule of the left cerebellar hemisphere. 4. Tiny old lacunar a cystic infarct in the left periventricular white matter. 5. Few small chronic subcortical white matter ischemic changes in both cerebral hemispheres. Electronically Signed: Hilario Samuels MD at 10:13 EDT ,
--- NOTE | 2022-11-17 01:12 | ECHOD_ITS ---
Reason For Study: TIA/CVA Procedure This was a 2D Doppler, Color Flow transthoracic echocardiogram. Exam performed portable in patient room. Left Ventricle Normal LV size. Left ventricular systolic function is normal. The estimated ejection fraction is 60 %. Normal diastology for age. No regional wall motion abnormalities noted. Right Ventricle Normal RV size. Normal systolic function. Atria The left atrium is mildly enlarged. Normal right atrium. Bubble contrast study negative for right to left interatrial shunt. Mitral Valve The mitral valve is structurally normal. No prolapse or stenosis seen. Trivial mitral valve insufficiency. Tricuspid Valve Normal tricuspid valve. Mild (1+) tricuspid valve insufficiency. Unable to estimate RV systolic pressure due to insufficient tricuspid regurgitant envelope. Aortic Valve Trisinus/trileaflet aortic valve. There is no aortic stenosis. No aortic valve insufficiency. Pulmonic Valve Normal pulmonic valve. Trivial pulmonic valve insufficiency. Great Vessels Normal aortic root. Pericardium/Pleural Trivial pericardial effusion. There are no echocardiographic indications of cardiac tamponade. Medication Performed a rapid injection of agitated mix of 9 cc saline and 1cc air to assess for atrial septal defect. MMode/2D Measurements & Calculations LVIDd: 4.6 cm IVSd: 1.00 cm Ao root diam: 2.7 cm LVIDs: 2.9 cm LVPWd: 1.0 cm LA dimension: 4.3 cm RVDd: 3.7 cm FS: 36.4 % LAV(MOD-bp): 68.2 ml LA A4 area: 22.5 cm2 RA A4 area: 16.7 cm2 LAV(MOD-bp) Indexed: 33.4 ml/m2 LAV(MOD-sp2): 66.4 ml LAV(MOD-sp4): 66.6 ml Doppler Measurements & Calculations MV E max calixto: 128.3 cm/sec Lat Peak E' Calixto: 13.4 cm/sec Med Peak E' Calixto: 12.5 cm/sec E/E' lat: 9.6 E/E' med: 10.2 MV V2 max: 129.7 cm/sec Ao V2 max: 118.6 cm/sec LV V1 max: 108.3 cm/sec MV max P.7 mmHg Ao max P.6 mmHg LV V1 max P.7 mmHg MV V2 mean: 66.0 cm/sec Ao V2 mean: 85.3 cm/sec LV V1 mean P.7 mmHg MV mean P.1 mmHg Ao mean P.3 mmHg LV V1 mean: 76.7 cm/sec MV V2 VTI: 29.6 cm Ao V2 VTI: 28.7 cm LV V1 VTI: 25.3 cm AV (velocity ratio): 0.88 PA V2 max: 99.0 cm/sec PA V2 mean: 69.1 cm/sec ECHO/Echo Complete Interpretation Summary The estimated ejection fraction is 60 %. The left atrium is mildly enlarged. Trivial pericardial effusion. There are no echocardiographic indications of cardiac tamponade. Bubble contrast study negative for right to left interatrial shunt. No previous study to compare Ordering Physician: Tammy Corado Performed By: Deniz Maldonado RCS
--- NOTE | 2022-11-17 01:18 | NURSING ---
Pt arrived from ED 11/17 @ 0130 Pt extremely sleepy r/t migraine cocktail. Dr. moya called the unit prior to pt arrival. NIH done to best of RN ability. will reassess when pt more alert. hand grinder aware.
[2022-11-17] MEDS: 0.9% Normal Saline 1,000 ML 100 ML IV (01:38)
[2022-11-17 06:28] LABS: Absolute Neutrophil Count 4.4 X10^3/uL (2.0-7.7); Basophil# 0.02 X10^3/uL; Basophil% 0.2 % (0-1); Eosinophil# 0.73 X10^3/uL; Eosinophils% 8.6 % (0-5); Hematocrit 40.2 % (37-47); Hemoglobin 12.9 g/dL (12.0-15.0); Lymphocyte % 33.2 % (19-41); Mean Corp Hgb Conc 32.1 g/dL (32-36); Mean Corpuscular Hgb 29.3 pg (27.0-32.0); Mean Corpuscular Volume 91.2 fL (81-99); Mean Platelet Vol. 10.4 fl (6.2-12.0); Monocyte# 0.45 X10^3/uL; Monocyte% 5.3 % (0-10); NRBC Flagged by Analyzer 0 % (0-5); Neutrophil # 4.41 X10^3/uL (2.7-7.7); Neutrophil % 52.3 % (47-70); Platelet Count 264 K/mm3 (150-450); RBC Distribution Width CV 13.2 % (11.6-14.6); RBC Distribution Width SD 43.8 fl (35.1-43.9); Red Blood Count 4.41 M/mm3 (4.2-5.4); White Blood Count 8.4 K/mm3 (4.4-11.0)
[2022-11-17 07:17] LABS: ALB/GLOB Ratio 0.9 RATIO (0.9-2.4); AST(SGOT) 14 U/L (15-37); Alanine Aminotransfer ALT/SGPT 18 U/L (13-56); Albumin, Serum 3.1 g/dL (3.2-5.0); Alkaline Phosphatase 58 U/L (45-117); Anion Gap 6 (5-15); BUN 26 mg/dL (7-18); BUN/Creat Ratio 21.8 RATIO (10-20); Calcium,Total 8.5 mg/dL (8.5-10.1); Chloride 115 mmol/L (98-107); Creatinine, Serum 1.19 mg/dL (0.55-1.02); EST Glomerular Filtration Rate 51 mL/min (>60); Est Glom Filt Rate - Afr Amer 62 mL/min (>60); Estimated Creatinine Clearance 52.95 ml/min; Globulin 3.5 g/dL (2.2-4.2); Glucose 102 mg/dL (74-106); Potassium 3.7 mmol/L (3.5-5.1); Protein, Total 6.6 g/dL (6.4-8.2); Sodium Level 143 mmol/L (136-145); Thyroid Stim Hormone (TSH) 3.19 uIU/mL (0.358-3.74)
--- NOTE | 2022-11-17 08:09 | PN.HOSP_ITS ---
Reason for Visit Reason for Visit: Diagnoses Migraine, unspecified, not intractable, without status migrainosus (11/17/22) Muscle weakness (generalized) (11/17/22) Paresthesia of skin (11/17/22) Subjective Subjective Paresthesias better, but still ongoing. Objective Data Objective Data Vital Signs: Vital Signs Temp Pulse Resp BP Pulse Ox O2 Del Method 36.6 C 86 16 137/81 H 97 Room Air 11/17/22 01:12 11/17/22 01:12 11/17/22 01:12 11/17/22 01:12 11/17/22 01:30 11/17/22 01:30 Oxygen Delivery Method Room Air Weight: 95.6 kg Body Mass Index (BMI) 34.0 Intake & Output: Intake and Output for Last 24 Hours 11/15/22 11/16/22 11/17/22 23:59 23:59 23:59 Intake Total 1000 / 1000 Balance 1000 / 1000 Lab / Micro Data 11/17/22 05:15 11/17/22 05:15 Labs: Laboratory Results - last 24 hr 11/16/22 22:30: WBC 8.9, RBC 4.12 L, Hgb 12.1, Hct 37.4, MCV 90.8, MCH 29.4, MCHC 32.4, RDW Std Deviation 43.0, RDW Coeff of Adelfo 13.1, Plt Count 240, MPV 9.8, Immature Gran % (Auto) 0.200, Neut % (Auto) 53.6, Lymph % (Auto) 31.2, Barton % (Auto) 5.8, Eos % (Auto) 9.0 H, Baso % (Auto) 0.2, Absolute Neuts (auto) 4.8, Absolute Lymphs (auto) 2.78, Nucleated RBC % 0, PT 13.0, INR 1.0, APTT 27.5, Sodium 140, Potassium 3.7, Chloride 109 H, Carbon Dioxide 26.0, Anion Gap 5, BUN 25 H, Creatinine 1.43 H, Estim Creat Clear Calc 44.06, Est GFR (MDRD) Af Amer 50 L, Est GFR (MDRD) Non-Af 41 L, BUN/Creatinine Ratio 17.5, Glucose 117 H, Calcium 8.4 L, Troponin I High Sens 5 11/16/22 23:20: Magnesium 1.8 11/17/22 05:15: WBC 8.4, RBC 4.41, Hgb 12.9, Hct 40.2, MCV 91.2, MCH 29.3, MCHC 32.1, RDW Std Deviation 43.8, RDW Coeff of Adelfo 13.2, Plt Count 264, MPV 10.4, Immature Gran % (Auto) 0.400, Neut % (Auto) 52.3, Lymph % (Auto) 33.2, Barton % (Auto) 5.3, Eos % (Auto) 8.6 H, Baso % (Auto) 0.2, Absolute Neuts (auto) 4.4, Absolute Lymphs (auto) 2.80, Nucleated RBC % 0, Sodium 143, Potassium 3.7, Chloride 115 H, Carbon Dioxide 22.0, Anion Gap 6, BUN 26 H, Creatinine 1.19 H, Estim Creat Clear Calc 52.95, Est GFR (MDRD) Af Amer 62, Est GFR (MDRD) Non-Af 51 L, BUN/Creatinine Ratio 21.8 H, Glucose 102, Calcium 8.5, Total Bilirubin 0.20, AST 14 L, ALT 18, Alkaline Phosphatase 58, Total Protein 6.6, Albumin 3.1 L, Globulin 3.5, Albumin/Globulin Ratio 0.9, TSH 3.19 Radiography Diagnostic Testing: Radiology Impression Brain CT 11/16/22 22:13 IMPRESSION: No acute findings in the head/brain. 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 Stroke ASPECTS score 10. AIDOC program was used to assist in the detection of abnormal findings. Electronically Signed: Malik Rosen MD at 22:32 EDT , ADDENDUM: 11/16/222 IMPRESSION: No acute findings in the head/brain. 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 Stroke ASPECTS score 10. AIDOC program was used to assist in the detection of abnormal findings. N.B. : The above Results were Read Back by Malik Rosen MD to Megan Rogers MD, and understanding confirmed on 11/16/2022 22:33:03 (ET). Electronically Signed: Malik Rosen MD at 22:32 EDT , ADDENDUM: 11/16/22 2241 IMPRESSION: undefined Head/Neck CTA 11/16/22 22:14 IMPRESSION: Negative CTA head and neck. AIDOC program was used to assist in the detection of abnormal findings. Electronically Signed: Malik Rosen MD at 22:47 EDT , ADDENDUM: 11/16/22 2254 IMPRESSION: Negative CTA head and neck. AIDOC program was used to assist in the detection of abnormal findings. N.B. : The above Results were Read Back by Malik Rosen MD to Megan Rogers MD, and understanding confirmed on 11/16/2022 22:47:56 (ET). Electronically Signed: Malik Rosen MD at 22:47 EDT , ADDENDUM: 11/16/22 2256 IMPRESSION: undefined Chest X-Ray 11/16/22 23:21 IMPRESSION: No radiographic evidence of acute cardiopulmonary disease. Electronically Signed: Malik Rosen MD at 0:27 EDT , Physical Exam Const alert and no apparent distress HEENT head/scalp atraumatic and moist oral mucous membranes Neck no lymphadenopathy Extremity normal to inspection Neuro moves all extremities Neuro Narrative: ataxia on right arm and leg. Psych affect normal Assessment & Plan Assessment/Plan (1) Acute right-sided muscle weakness: PLAN: Pt is from [place] and has neurology there. She has had previous strokes which she said she was told were due to migraine. Per the patient, typically has similar symptoms, then develops a headache. She had received benadryl and proch lorperazine and went to sleep, so did not notice a headache this time. MRI brain: subacute linear lacunar ischemic infarct in the left thalamus adjacent the left posterior internal capsule. Echo pending Continue aspirin and atorvastatin Consult SOC PLAN: Plan Chronic conditions: * PAF: Given acute presentation #1 we will temporarily hold patient home verapamil regimen, per current neurology recommendation we will continue her aspirin therapy but again given underlying paroxysmal A-fib history if MRI shows any recurrent stroke would certainly at that point be best for patient to initiate chronic anticoagulant therapy. She has never followed up for her PAF with cardiology. * Chronic Kidney Disease Stage III, unclear subtype: Admission BUN/Cr 25/1.43, baseline renal function noted to be 1 2.5 prior but only one value thus unclear exact baseline, will repeat BMP in AM. * Hypertension: We will maintain permissive hypertension with goal less than 180 per neurology recommendation given acute presentation with as needed agents per stroke protocol. * Hyperlipidemia: Continue home statin regimen. AM FLP. * Diabetes mellitus type II: Hold oral home regimen, ADA diet, accu checks w/ ISS, HgbA1c ordered as noted, nutrition consulted per stroke protocol. * Obesity: Weight loss and lifestyle changes encouraged. * SEAN: CPAP q HS. DVT prophylaxis: Lovenox. CODE status: Full Code. Charges/Coding Visit Charges Inpatient E&M: 50057 Subs Hosp L3
--- NOTE | 2022-11-17 10:35 | NURSING ---
NIH and VS late d/t patient being off floor for MRI.
[2022-11-17 11:22] LABS: Hemoglobin A1c 5.4 % (3.8-5.6)
[2022-11-17] MEDS: Topiramate 100 MG Tablet PO (11:35)
[2022-11-17] MEDS: Aspirin E.C. 325 MG Tablet PO (11:35)
[2022-11-17] MEDS: Enoxaparin 40 MG/0.4 ML Syringe SC (11:35)
[2022-11-17 11:45] LABS: Bedside Glucose 83 mg/dL (74-106)
[2022-11-17 13:10] LABS: Cholesterol 105 mg/dL (200); High Density Lipoprotein 36 mg/dL; Triglycerides 50 mg/dL; Very Low Density Lipoprotein 10 mg/dL (5-40)
--- NOTE | 2022-11-17 15:32 | DCINST_ITS ---
Discharge Instructions Diet Discharge Diet: Low fat / Low cholesterol Dressing / Incision Call your doctor if you observe: - (increased numbness. unilateral weakness. difficulty speaking. ) Follow Up Care Test Results: Test results from this visit will be discussed in further detail at your follow- up appointment, if applicable. Discharge Plan Admission Admit Date/Time: 11/17/22 00:08 Primary Reason for Your Visit: Stroke Attending Provider: Alireza Gonzales Primary Care Provider: Care Physician,No Primary Consulting Providers: Tammy Corado Instructions Additional Instructions / Restrictions: You had a stroke. The neurologist you saw made the following recommendations: You will continue aspirin 325mg daily through 11/21/2022. Then on 11/22/2022, start aspirin 81mg daily (baby aspirin) AND apixaban (Eliquis) 5 mg twice daily. Also, atorvastatin 80mg daily. Please follow up with your neurologist for follow up. Please call medical records for you MRI and CT images. They can provide you with either a disc or thumb drive. If that does not work, you can see if they can push the images to your neurologist, depending on their electronic medical record type. Discharge Orders/Prescriptions Prescriptions: New apixaban 5 mg tablet 5 mg PO BID Qty: 60 0RF Rx Instructions: start 11/22/2022 atorvastatin 80 mg tablet 80 mg PO QHS Qty: 30 0RF aspirin 81 mg capsule 81 mg PO DAILY Qty: 30 0RF Rx Instructions: start 11/22/2022 Continued verapamil 120 mg Tablet 120 mg PO BID topiramate 100 mg Tablet 100 mg PO BID lisinopril 10 mg tablet 10 mg PO DAILY Qty: 30 0RF hydrocodone-acetaminophen 5-325 mg tablet 1 tab PO Q6H PRN PRN (Reason: Pain) 3 Days Qty: 10 0RF ondansetron 4 mg tablet,disintegrating 4 mg PO Q8H PRN PRN (Reason: Nausea) Qty: 10 0RF insulin glargine [Lantus U-100 Insulin] 100 unit/mL solution 20 unit subcut DAILY aspirin [Aspir-Oksana] 325 mg tablet,delayed release (DR/EC) 325 mg PO DAILY Qty: 4 0RF Rx Instructions: continue through 11/21, then stop and start taking aspirin 81 mg daily. Held metformin 1,000 mg Tablet 500 mg PO DAILY Hold Instructions: Resume on 11/21/22. Discontinued simvastatin 40 mg Tablet 40 mg PO DAILY Referrals / Follow Up: Care Physician,No Primary [Primary Care Provider] - Disposition Discharge Orders: Discharge Patient (Routine); Ordered 11/17/22 Ordered By: Dr. Alireza Gonzales
--- NOTE | 2022-11-17 15:42 | DS.PCM_ITS ---
Providers Date of Admission: 11/17/22 Primary Care Physician: No Primary Care Phys Reason For Visit: COMPLEX MIGRAINE VERSUS TIA/CVA Diagnosis Discharge Diagnosis (1) Stroke due to embolism: Status: Acute Code(s): I63.9 - Cerebral infarction, unspecified Plan: Pt is from [place] and has neurology there. She has had previous strokes which she said she was told were due to migraine. Per the patient, typically has similar symptoms, then develops a headache. She had received benadryl and prochlorperazine and went to sleep, so did not notice a headache this time. MRI brain: subacute linear lacunar ischemic infarct in the left thalamus adjacent the left posterior internal capsule. Echo pending Continue aspirin and atorvastatin DW SOC neurology: recommending ASA 325 for 4 more days, then start ASA 81 and a nticoagulation. Will use apixaban 5mg. High-intensity statin. Follow up with neurology. Concern is for embolic given pt's h/o of paroxysmal afib. Her neurologist is in [place]. Plan Chronic conditions: * PAF: Given acute presentation #1 we will temporarily hold patient home verapamil regimen, per current neurology recommendation we will continue her aspirin therapy but again given underlying paroxysmal A-fib history if MRI shows any recurrent stroke would certainly at that point be best for patient to initiate chronic anticoagulant therapy. She has never followed up for her PAF with cardiology. * Chronic Kidney Disease Stage III, unclear subtype: Admission BUN/Cr 25/1.43, baseline renal function noted to be 1 2.5 prior but only one value thus un clear exact baseline, will repeat BMP in AM. * Hypertension: We will maintain permissive hypertension with goal less than 180 per neurology recommendation given acute presentation with as needed agents per stroke protocol. * Hyperlipidemia: Continue home statin regimen. AM FLP. * Diabetes mellitus type II: Hold oral home regimen, ADA diet, accu checks w/ ISS, HgbA1c ordered as noted, nutrition consulted per stroke protocol. * Obesity: Weight loss and lifestyle changes encouraged. * SEAN: CPAP q HS. DVT prophylaxis: Lovenox. CODE status: Full Code. Medications at Discharge Home Medications hydrocodone-acetaminophen 5-325mg 5mg-325mg 1 tab PO Q6H PRN PRN Pain 3 days #10 TABLETS 05/18/22 lisinopril 10 mg tablet 10 mg PO DAILY #30 tabs 05/18/22 metformin 1,000 mg tablet 500 mg PO DAILY 05/18/22 ondansetron 4 mg disintegrating tablet 4 mg PO Q8H PRN PRN Nausea #10 tabs 05/18/22 topiramate 100 mg tablet 100 mg PO BID 05/18/22 verapamil 120 mg tablet 120 mg PO BID 05/18/22 apixaban 5 mg tablet 5 mg PO BID #60 tabs 11/17/22 aspirin 325 mg tablet,delayed release (Aspir-Oksana) 325 mg PO DAILY #4 tabs 11/17/22 aspirin 81 mg capsule 81 mg PO DAILY #30 caps 11/17/22 atorvastatin 80 mg tablet 80 mg PO QHS #30 tabs 11/17/22 insulin glargine 100 unit/mL subcutaneous solution (Lantus U-100 Insulin) 20 unit subcut DAILY 11/17/22 Hospital Course Operations None Procedures 2-D Echocardiogram Summary of Care Provided Minutes Spent on Discharge: 45 Weight / BMI Weight Weight: 95.6 kg Body Mass Index (BMI) 34.0 ABG / Lab / Microbiology Data 11/17/22 05:15 11/17/22 05:15 Laboratory: Laboratory Results - last 24 hr 11/16/22 22:30: WBC 8.9, RBC 4.12 L, Hgb 12.1, Hct 37.4, MCV 90.8, MCH 29.4, MCHC 32.4, RDW Std Deviation 43.0, RDW Coeff of Adelfo 13.1, Plt Count 240, MPV 9.8, Immature Gran % (Auto) 0.200, Neut % (Auto) 53.6, Lymph % (Auto) 31.2, Deuel % (Auto) 5.8, Eos % (Auto) 9.0 H, Baso % (Auto) 0.2, Absolute Neuts (auto) 4.8, Absolute Lymphs (auto) 2.78, Nucleated RBC % 0, PT 13.0, INR 1.0, APTT 27.5, Sodium 140, Potassium 3.7, Chloride 109 H, Carbon Dioxide 26.0, Anion Gap 5, BUN 25 H, Creatinine 1.43 H, Estim Creat Clear Calc 44.06, Est GFR (MDRD) Af Amer 50 L, Est GFR (MDRD) Non-Af 41 L, BUN/Creatinine Ratio 17.5, Glucose 117 H, Calcium 8.4 L, Troponin I High Sens 5 07/13/23 23:20: Magnesium 1.8 11/17/22 05:15: WBC 8.4, RBC 4.41, Hgb 12.9, Hct 40.2, MCV 91.2, MCH 29.3, MCHC 32.1, RDW Std Deviation 43.8, RDW Coeff of Adelfo 13.2, Plt Count 264, MPV 10.4, Immature Gran % (Auto) 0.400, Neut % (Auto) 52.3, Lymph % (Auto) 33.2, Deuel % (Auto) 5.3, Eos % (Auto) 8.6 H, Baso % (Auto) 0.2, Absolute Neuts (auto) 4.4, Absolute Lymphs (auto) 2.80, Nucleated RBC % 0, Sodium 143, Potassium 3.7, Chloride 115 H, Carbon Dioxide 22.0, Anion Gap 6, BUN 26 H, Creatinine 1.19 H, Estim Creat Clear Calc 52.95, Est GFR (MDRD) Af Amer 62, Est GFR (MDRD) Non-Af 51 L, BUN/Creatinine Ratio 21.8 H, Glucose 102, Hemoglobin A1c 5.4, Calcium 8.5, Total Bilirubin 0.20, AST 14 L, ALT 18, Alkaline Phosphatase 58, Total Protein 6.6, Albumin 3.1 L, Globulin 3.5, Albumin/Globulin Ratio 0.9, Triglycerides 50, Cholesterol 105, LDL Cholesterol 59, VLDL Cholesterol 10, HDL Cholesterol 36 L, TSH 3.19 11/17/22 11:25: POC Glucose 83 Radiography Diagnostic Testing: Radiology Impression Brain CT 11/16/22 22:13 IMPRESSION: No acute findings in the head/brain. 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 Stroke ASPECTS score 10. AIDOC program was used to assist in the detection of abnormal findings. Electronically Signed: Malik Rosen MD at 22:32 EDT , ADDENDUM: 11/16/22 5264 IMPRESSION: No acute findings in the head/brain. 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 Stroke ASPECTS score 10. AIDOC program was used to assist in the detection of abnormal findings. N.B. : The above Results were Read Back by Malik Rosen MD to Megan Rogers MD, and understanding confirmed on 11/16/2022 22:33:03 (ET). Electronically Signed: Malik Rosen MD at 22:32 EDT , ADDENDUM: 11/16/22 2241 IMPRESSION: undefined Head/Neck CTA 11/16/22 22:14 IMPRESSION: Negative CTA head and neck. AIDOC program was used to assist in the detection of abnormal findings. Electronically Signed: Malik Rosen MD at 22:47 EDT , ADDENDUM: 11/16/22 2254 IMPRESSION: Negative CTA head and neck. AIDOC program was used to assist in the detection of abnormal findings. N.B. : The above Results were Read Back by Malik Rosen MD to Megan Rogers MD, and understanding confirmed on 11/16/2022 22:47:56 (ET). Electronically Signed: Malik Rosen MD at 22:47 EDT , ADDENDUM: 11/16/22 2256 IMPRESSION: undefined Chest X-Ray 11/16/22 23:21 IMPRESSION: No radiographic evidence of acute cardiopulmonary disease. Electronically Signed: Malik Rosen MD at 0:27 EDT , Brain MRI 11/17/22 01:12 IMPRESSION: 1. Subacute linear lacunar ischemic infarct in the left thalamus adjacent the left posterior internal capsule. 2. Prominent old ischemic infarct with cystic atrophy and surrounding encephalomalacia in the left medial occipital lobe corresponding to the cuneus and posterior aspect of the lingual gyrus. 3. Small old ischemic infarct with cystic atrophy and encephalomalacia in the medial surface of the inferior semilunar lobule of the left cerebellar hemisphere. 4. Tiny old lacunar a cystic infarct in the left periventricular white matter. 5. Few small chronic subcortical white matter ischemic changes in both cerebral hemispheres. N.B. : The above Results were Read Back by Hilario Samuels MD to Yesenia Copeland RN, and understanding confirmed on 11/17/2022 10:38:44 (ET). Electronically Signed: Hilario Samuels MD at 10:13 EDT , D/C Instructions Discharge Diet: Low fat / Low cholesterol Call your doctor if you observe: - (increased numbness. unilateral weakness. difficulty speaking. ) Meaningful Use Info Meaningful Use Diagnoses (Choose all that apply): Ischemic CVA CVA Therapy Assessed for PT,OT and/or ST?: Yes Ischemic Stroke Antithrombotic order at d/c?: Yes Dx of Atrial fib/flutter?: Yes Anticoagulant at discharge?: Yes Statins at discharge?: Yes Primary Dx Acute Ischemic CVA?: Yes IV thrombolytic ordered during stay?: No Reason IV thrombolytic not ordered: Procedure not Indicated Discharge Plan Admission Admit Date/Time: 11/17/22 00:08 Primary Reason for Your Visit: Stroke Attending Provider: Alireza Gonzales Primary Care Provider: Care Physician,No Primary Consulting Providers: Tammy Cordao Instructions Additional Instructions / Restrictions: You had a stroke. The neurologist you saw made the following recommendations: You will continue aspirin 325mg daily through 11/21/2022. Then on 11/22/2022, start aspirin 81mg daily (baby aspirin) AND apixaban (Eliquis) 5 mg twice daily. Also, atorvastatin 80mg daily. Please follow up with your neurologist for follow up. Please call medical records for you MRI and CT images. They can provide you with either a disc or thumb drive. If that does not work, you can see if they can push the images to your neurologist, depending on their electronic medical record type. Discharge Orders/Prescriptions Prescriptions: New apixaban 5 mg tablet 5 mg PO BID Qty: 60 0RF Rx Instructions: start 11/22/2022 atorvastatin 80 mg tablet 80 mg PO QHS Qty: 30 0RF aspirin 81 mg capsule 81 mg PO DAILY Qty: 30 0RF Rx Instructions: start 11/22/2022 Continued verapamil 120 mg Tablet 120 mg PO BID topiramate 100 mg Tablet 100 mg PO BID lisinopril 10 mg tablet 10 mg PO DAILY Qty: 30 0RF hydrocodone-acetaminophen 5-325 mg tablet 1 tab PO Q6H PRN PRN (Reason: Pain) 3 Days Qty: 10 0RF ondansetron 4 mg tablet,disintegrating 4 mg PO Q8H PRN PRN (Reason: Nausea) Qty: 10 0RF insulin glargine [Lantus U-100 Insulin] 100 unit/mL solution 20 unit subcut DAILY aspirin [Aspir-Oksana] 325 mg tablet,delayed release (DR/EC) 325 mg PO DAILY Qty: 4 0RF Rx Instructions: continue through 11/21, then stop and start taking aspirin 81 mg daily. Held metformin 1,000 mg Tablet 500 mg PO DAILY Hold Instructions: Resume on 11/21/22. Discontinued simvastatin 40 mg Tablet 40 mg PO DAILY Referrals / Follow Up: Care Physician,No Primary [Primary Care Provider] - Disposition Discharge Orders: Discharge Patient (Routine); Ordered 11/17/22 Ordered By: Dr. Alireza Gonzales Charges/Coding Visit Charges Inpatient E&M: 53549 Disch Hosp >30min
--- NOTE | 2022-11-17 16:12 | CASEMGMT ---
SW completed a PHQ 9 with patient as she had a Stroke. Patient scored a 5 which indicates mild depression. Patient declined need for resources. Shelbie JOHNSON
[2022-11-17 16:55] LABS: Bedside Glucose 71 mg/dL (74-106)
== END 2022-11-17 16:58 | disposition home or self-care (01) ==
LOC: ED 23:38 → PCU 11-17 00:24
PROVIDERS: Admitting Provider Family Medicine; Emergency Provider Emergency Medicine
DX: I63.9 Cerebral infarction, unspecified (principal); E11.22 Type 2 diabetes mellitus with diabetic chronic kidney disease; I48.0 Paroxysmal atrial fibrillation; Z79.4 Long term (current) use of insulin; N18.30 Chronic kidney disease, stage 3 unspecified; E78.5 Hyperlipidemia, unspecified; G43.909 Migraine, unspecified, not intractable, without status migrainosus; I12.9 Hypertensive chronic kidney disease with stage 1 through stage 4 chronic kidney disease, or unspecified chronic kidney disease; M62.81 Muscle weakness (generalized); Z79.82 Long term (current) use of aspirin; R29.810 Facial weakness; Z79.899 Other long term (current) drug therapy; Z79.84 Long term (current) use of oral hypoglycemic drugs; E66.9 Obesity, unspecified; R29.707 NIHSS score 7; G47.33 Obstructive sleep apnea (adult) (pediatric); Z68.35 Body mass index [BMI] 35.0-35.9, adult; R94.31 Abnormal electrocardiogram [ECG] [EKG]; I44.0 Atrioventricular block, first degree
CPT/HCPCS: 36415; 70450; 70496; 70498; 70551; 71045; 80048; 80053; 80061; 82962; 83036; 83735; 84443; 84484; 85025; 85610; 85730; 93005; 93306; 96361; 96372; 96374; 96375; 97162; 97166; 97802; 99221; 99285; J7030; Q9967; A4216; G0378